=== PATIENT | female | born 1985 | race African-American/Black ===

== ENCOUNTER 2022-09-27 14:45 | Emergency (ER) | payer MEDICAID ==
[~2022-09-27] VITALS: Ht 162.6 cm; Wt 73.0 kg
[2022-09-27 14:52] VITALS: BP 127/100
[2022-09-27] MEDS ORDERED: MAGNESIUM/ALUMINUM HYDROXIDE/SIMETHICONE 30ML UDC PO STA (14:58)
[2022-09-27] MEDS ORDERED: VISCOUS LIDOCAINE 2% 15 ML UDC PO STA (14:58)
[2022-09-27] MEDS ORDERED: ONDANSETRON HCL 4MG/2ML INJ IV ONE (15:00)
[2022-09-27] MEDS ORDERED: MORPHINE SULFATE 4 MG/ML CPJ (NOT FOR IM USE) IV ONE (15:00)
[2022-09-27] MEDS ORDERED: SODIUM CHLORIDE 0.9% 1,000 ML IV ONE (15:00)
[2022-09-27 15:35] LABS: BASOPHILS % 0.6 % (0.0-2.0); EOSINOPHILS % 5.6 % (0.0-5.0); HEMATOCRIT. 44.2 % (36.0-48.0); HEMOGLOBIN. 14.8 g/dL (12.0-16.0); MEAN CORPUSCULAR HEMOGLOBIN 30.7 pg (28.0-32.0); MEAN CORPUSCULAR VOLUME 91.8 fL (81.0-99.0); MEAN PLATELET VOLUME 6.4 fl (7.4-10.4); NEUTROPHILS % 61.8 % (40.0-76.0); PLATELET 475 x1000/uL (130-400); RED BLOOD CELL COUNT 4.81 mill/uL (4.2-5.4); RED CELL DISTRIBUTION WIDTH 13.6 % (11.6-14.6)
[2022-09-27 15:37] LABS: CHLORIDE 103 mEq/L (98-107)
[2022-09-27 15:42] LABS: HCG SCREEN NEGATIVE
== END 2022-09-27 16:13 | disposition left against medical advice (07) ==
LOC: ER 14:45
DX: R19.7 Diarrhea, unspecified (principal)
CPT/HCPCS: 36415; 76700; 80053; 83690; 84703; 85025; 99284; J7030